=== PATIENT | female | born 1950 | race Caucasian/White ===

== ENCOUNTER 2018-05-19 07:51 | Inpatient (IN) | payer BC ==
[2018-04-28 08:58] LABS: ABSOLUTE BASOPHILS 0.1 thou/uL (0.0-0.2); ABSOLUTE EOSINOPHILS 0.2 thou/uL (0.0-0.7); ABSOLUTE LYMPHOCYTES 1.5 thou/uL (0.8-5.3); ABSOLUTE MONOCYTES 0.3 thou/uL (0.0-1.2); ABSOLUTE NEUTROPHILS 3.2 thou/uL (1.6-8.1); BASOPHILS 2.2 %; EOSINOPHILS 4.1 %; HEMOGLOBIN 14.8 gm/dL (12.0-15.0); LYMPHOCYTES 28.1 %; MCH 30.5 pg (26.0-34.0); MCHC 33.6 g/dL (28.0-37.0); MCV 90.9 fL (80.0-100.0); MONOCYTES 5.9 %; MPV 7.8 fl. (7.2-11.1); NUCLEATED RBCS 0 /100WBC; PLATELET COUNT* 295 thou/uL (150-400); POLYS 59.7 %; RBC 4.84 mil/uL (4.20-5.00); RDW-CV 13.1 % (10.5-14.5); WBC 5.3 thou/uL (4.0-11.0)
[2018-04-28 09:06] LABS: APTT 27.8 Seconds (25.0-31.3); PROTIME 10.3 Seconds (9.20-11.50)
[2018-04-28 09:15] LABS: ALBUMIN 3.6 g/dL (3.4-5.0); CALCIUM 9.1 mg/dL (8.5-10.1); CREATININE 1.2 mg/dL (0.6-1.3); POTASSIUM 4.1 mmol/L (3.5-5.1); TOTAL BILIRUBIN 0.6 mg/dL (<0.1-1.0)
[2018-04-28 10:01] LABS: ESR (SEDRATE) 2 mm/hr (0-30)
--- NOTE | 2018-04-28 17:31 | EKG ---
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 04/28/18 1731 0908 7 Trevor Multani MD, FACC /EPI
[2018-04-28 21:10] LABS: GLYCOHEMOGLOBIN (HGB A1C) 6.5 % (4.8-5.6)
[~2018-05-19] VITALS: Ht 165.1 cm; Wt 90.7 kg
[~2018-05-19 07:51] MED LIST: ACTOS 30 MG TAB30 MG PO; ALENDRONATE PO; ALEVE220 MG PO; AMBIEN 5 MG TABL5 M1 PO; ARIMIDEX PO; ASPIR-TRIN325 MG PO; ASPIRIN325 PO; CALCIUM 500 +1 EAC5 PO; CEFTIN500 MG PO; COLACE100 MG PO; EFFEXOR XR150 MG PO; EFFEXOR XR75 MG PO; ELEMENTAL CALC600 MG PO; FISH OIL 1,001000 M2 PO; FISH OIL 1,001000 MG PO; FISHOIL PO; GLUCOPHAGE1000 MG PO; HYDROCODON-ACE1 EAC7 PO; HYDROCODONE-AP1 EAC6 PO; LISINOPRIL-HCT1 EAC1 PO; LISINOPRIL10 MG PO; LODINE XL500 MG PO; MULTIVITAMINS PO; OXYCODONE HCL 55 MG PO; PHENERGAN 25 MG25 M1 PO; SEROQUEL XR50 MG PO; SIMVASTATIN20 MG PO; TYLENOL325 MG PO; UNICOMPLEX M TA1 TA1 PO; VICODIN 5-5001 EACH PO; VITAMIN D1000 UNI1 PO; VITAMIN D5000 UNIT PO; XARELTO10 M1 PO; XARELTO10 MG PO; ZOCOR 20 MG TAB20 M1 PO
[2018-05-19 08:02] VITALS: BP 132/71
[2018-05-19 13:05] VITALS: BP 112/50
--- NOTE | 2018-05-19 19:58 | NUR ---
ASSUMED PT CARE AT 1255. ARRIVED ON UNIT BY BED. PT ALERT AND ORIENTED X 4. IVF INFUSING @ 100MLS/HR. MEPILEX DRESSING-C/D/I. PT WAS NOT NAUSEOUS AFTER ARRIVAL TO FLOOR. PT GIVEN OXY IR FOR PAIN CONTROL. TOLERATING CLEAR LIQUID DIET. SCDS IN PLACE. ICE PACK IN USE TO RIGHT HIP. IGNACIO HOSE ON. HEMOVAC DRAIN IN PLACE. PT UP TO BEDSIDE COMMODE TO VOID IN AFTERNOON. HOURLY ROUNDS MAINTAINED. CALL LIGHT WITHIN REACH.
[2018-05-19 20:00] VITALS: BP 104/62
[2018-05-20] VITALS (8 sets, daily range): BP systolic 89–123; BP diastolic 35–77
[2018-05-20 03:55] LABS: HEMATOCRIT 32.3 % (37.0-47.0)
--- NOTE | 2018-05-20 06:25 | NUR ---
Oriented x 4 but drowsy. Rt hip mepilex dressing is dry and intact. She has been up x 1 this shift to the bedside commode with walker and gaitbelt, she is 50% weight bearing on that rt lower extremity. Vitals are stable. She's been on 2L n/c and wearing capno monitor and it hasn't alarmed much unless she wasn't deep breathing. She had pain meds x 1 at bedtime. She has slept well.
--- NOTE | 2018-05-20 07:54 | NUR ---
Order recieved to discontinue right hip hemovac drain. It was removed without difficulty. Gauze and tegaderm dressing placed.
[2018-05-20] MEDS ORDERED: PERCOCET PO (08:04)
[2018-05-20] MEDS ORDERED: CYCLOBENZAPRINE10 MG PO (08:04)
[2018-05-20] MEDS ORDERED: ELIQUIS5 MG PO (08:04)
[2018-05-20] MEDS ORDERED: OXYCODONE HCL 55 MG PO (08:07)
--- NOTE | 2018-05-20 13:21 | OP ---
[address] [address] OPERATIVE REPORT Name: MARQUISE ROLLINS Room: [address] IN .R#: [id number] Admission: 05/19/18 Attend Phys: Brendan Broussard Discharge: Date of : 46 Report #: [id number] THIS REPORT FOR: //name// CC: Sam Esteban DICTATED BY: Glenn Boo DO DATE OF SERVICE: 05/19/2018 POSTOPERATIVE DIAGNOSIS: Right hip degenerative joint disease. PROCEDURE: Right total hip arthroplasty. ORTHOPEDIC IMPLANTS: Include MicroPort size 4 standard femoral stem, MicroPort 34 mm acetabular liner, MicroPort 36 mm high wall polyethylene liner, MicroPort 36 mm x +3.5 offset head ceramic. SURGEON: Bari Mcbride DO ASSISTANTS: Glenn Boo DO and Papito Wyman DO. ESTIMATED BLOOD LOSS: 300 mL. PREOPERATIVE ANTIBIOTICS: 2 grams Ancef. DRAINS: One medium Hemovac. SPECIMENS: None. CONDITION OF THE PATIENT: Stable to PACU. INDICATIONS FOR PROCEDURE: This 68-year-old female has been dealing with right hip pain. She has known degenerative joint disease, has been treated for bilateral knee DJD and now seeking treatment for hip DJD. DESCRIPTION OF PROCEDURE: Once written and verbal consent was obtained, the patient was taken from the preoperative holding area to the operating suite, given the benefit of general anesthesia and placement in the lateral decubitus position on a lateral pegboard. All bony surfaces were well padded. The right lower extremity was prepared for surgery, was sterilely prepped and draped in library information technician manner. Timeout was performed to verify the correct operative site, location and procedure. A standard curvilinear incision was made on the anterior surface of the greater trochanter. Sharp dissection down to the IT band and through the IT band, Charnley retractor was placed [place] [address] OPERATIVE REPORT Name: MARQUISE ROLLINS Room: [address] IN [facility].#: [id number] Admission: 05/19/18 Attend Phys: Brendan Broussard Discharge: Date of : 46 Report #: [id number] medius was visualized and electrocautery was used to peel off the greater trochanter. The capsule was identified, was incised in a H capsulotomy. The hip was dislocated. A femoral neck cut was performed. Attention taken to the acetabulum. The soft tissue components were removed from labrum and hypertrophic synovial tissue. Next, sequential reaming up to size 34 mm was performed. There was bleeding bone on 100% of the acetabular surface. A 54 mm 3-hole shell was impacted into place. Two screws were placed within the cup. Next, a 36 mm high wall liner was placed, impacted into place. Next, attention taken to the femur. Box osteotome was used. A centralizer and lateralizer was utilized, sequentially broached up to a size 4. Intraoperative radiographs were obtained and the size 4 stem was selected with the +3.5 for good stability. Final implant of a size 4 standard with 3.5 mm neck was utilized. Final ceramic head was impacted into place. There was good stability of the hip joint. The capsule was closed with #1 Vicryl. The gluteus medius and gluteus jean claude were closed with a #5 TiCron through the greater trochanter for bony fixation. Next, the IT band was closed with #1 Vicryl. Soft tissue was closed with 0 Vicryl, 2-0 Vicryl and a running 3 Stratafix. Skin glue, surgical dressing and a medium Hemovac drain was placed. The patient was awakened, placed on a bed with an abduction pillow in place. PQRS: The patient will receive two doses of prophylactic antibiotics postoperatively as well as Eliquis DVT prophylaxis for 14 days and aspirin 325 b.i.d. for 4 weeks thereafter. <ELECTRONICALLY SIGNED> By: Beny Glasgow DO 05/20/18 1321 1026 [id number] Mcbride DO /amena
--- NOTE | 2018-05-20 16:00 | NUR ---
PT.IN BED. NOT FEELING WELL, BP LOW. SHE SAID SHE LIVES WITH HER ,WHO CAN HELP HER AT HOME IF NEEDED. DAUGHTER WILL BE STAYING WITH THEM ALSO FOR A FEW DAYS. SHE HAS A FRONT WHEEL WALKER IN ROOM WITH HER THAT IS HERS FROM HOME. SHE IS NORMALLY INDEPENDENT AT HOME. IF HOME HEALTH ORDERED AT DISCHARGE WOULD LIKE [facility]: [phone].
--- NOTE | 2018-05-20 16:18 | NUR ---
WAS ASKED TO CALL IN SCRIPT FOR ELIQUIS TO [facility]. CALLED IN AND COPAY IS $20. UPDATED KIERRA/CRISTOBAL
--- NOTE | 2018-05-20 16:34 | NUR ---
ALERT AND ORIENTED X4. UP WITH ASSIST X1-2 WITH WALKER AND GAIT BELT. PAIN BEING MANAGED WITH PO PAIN MEDICATION. NAUSEA BEING MANAGED WITH IV NAUSEA MEDICATION. TOLERATING DIET. ATTENDED PHYSICAL AND OCCUPATIONAL THERAPY THIS SHIFT. PATIENTS BLOOD PRESSURE IS LOW THIS AFTERNOON, PHYSICIAN NOTIFIED ORDERS RECIEVED. CALL LIGHT IS WITHIN REACH. HOURLY ROUNDS HAVE BEEN MAINTAINED THROUGHOUT SHIFT. CALL LIGHT IS WITHIN REACH. NURSING WILL CONTINUE TO MONITOR.
[2018-05-20 16:49] LABS: HEMATOCRIT 30.6 % (37.0-47.0); HEMOGLOBIN 10.4 gm/dL (12.0-15.0)
[2018-05-21 03:06] LABS: HEMATOCRIT 28.3 % (37.0-47.0); HEMOGLOBIN 9.8 gm/dL (12.0-15.0)
[2018-05-21 04:35] VITALS: BP 92/45
--- NOTE | 2018-05-21 07:04 | NUR ---
PATIENT HAS SLEPT WELL THROUGHOUT THE NIGHT. PAIN WELL CONTROLLED. VSS ON 2L 02 VIA NASAL CANNULA. ALTHOUGH BP SLIGHTLY LOW. DRESSING TO RIGHT HIP IS C/D/I AND ABDUCTOR WEDGE IN PLACE AND HIP PRECAUTIONS IN PLACE. PATIENT INSTRUCTED TO USE CALL LIGHT WHEN NEEDING ASSISTANCE AND HOURLY ROUNDS MADE. WILL CONTINUE WITH PLAN OF CARE AND NURSING TO MONITOR.
[2018-05-21 08:15] VITALS: BP 78/46
[2018-05-21 09:23] LABS: CALCIUM 8.6 mg/dL (8.5-10.1); CREATININE 1.3 mg/dL (0.6-1.3); POTASSIUM 4.7 mmol/L (3.5-5.1)
--- NOTE | 2018-05-21 13:24 | NUR ---
ALERT AND ORIENTED X4. UP WITH MAX ASSIST X1-2 WITH WALKER AND GAIT BELT. IV IS PATENT AND INFUSING. PAIN BEING MANAGED WITH PO PAIN MEDICATION AND MUSCLE RELAXER. DENIES NAUESA. TOLERATING DIET. BLOOD PRESSURE HAS BEEN LOW THIS AM. PHYSICIAN IS AWARE. ATTENDED PHYSICAL THERAPY THIS AM. IGNACIO HOSE IN PLACE BILATERALLY. DRESSING TO RIGHT HIP C/D/I. HOURLY ROUNDS HAVE BEEN MAINTAINED THROUGHOUT SHIFT. REPORT HAS BEEN GIVEN TO ABELARDO ON 3W, PATIENT TRANSFERRING TO 309.
--- NOTE | 2018-05-21 13:50 | NUR ---
TRANSFER NOTE - REC REPORT FROM FELIZ MCCORMICK. NO QUESTIONS. PT ARRIVED TO [facility] AT THIS TIME. PT ORIENTED TO CALL LIGHT SYSTEM. AGREE WITH PREVIOUS RN CHARTING. WILL CONTINUE TO MONITOR.
[2018-05-21 14:00] VITALS: BP 94/60
[2018-05-21 16:09] VITALS: BP 110/68
--- NOTE | 2018-05-21 17:35 | NUR ---
SHIFT NOTE - PT WORKED WITH PT THIS SHIFT. PT ABLE TO COMPLY WITH WEIGHT BEARING RESTRICTIONS. FAMILY PRESENT AT BEDSIDE FOR MOST OF SHIFT. WILL CONTINUE TO MONITOR.
[2018-05-21 19:57] VITALS: BP 117/57
[2018-05-21 23:58] VITALS: BP 104/56
[2018-05-22 04:24] VITALS: BP 90/53
--- NOTE | 2018-05-22 04:41 | NUR ---
PATIENT HAS REMAINED ALERT AND ORIENTED X 4 THROUGHOUT THE SHIFT AND RESTING QUIETLY ON HOURLY ROUNDS. HIP PRECAUTIONS MAINTAINED. IVF'S PER ORDERS. BP 90-117/53-57. O2 APPLIED AT MIDNIGHT FOR SLEEPING DESAT. O2 ON AT 4L/MIN CURRENTLY WITH SPOT O2 SAT 96%. MEDICATED FOR PAIN AND SPASMS X 1 TO GOOD EFFECT. DRESSING RIGHT HIP CLEAN AND DRY. CONTINUE TO MONITOR.
[2018-05-22 07:58] VITALS: BP 90/54
[2018-05-22 09:24] LABS: HCO3 25.7 mmol/L (22.0-26.0); PCO2 41.1 mmHg (35.0-45.0); PO2 85.9 mmHg (75.0-100.0); pH 7.414 (7.340-7.450)
[2018-05-22 09:55] LABS: ABSOLUTE EOSINOPHILS 0.2 thou/uL (0.0-0.7); ABSOLUTE LYMPHOCYTES 1.1 thou/uL (0.8-5.3); ABSOLUTE MONOCYTES 0.6 thou/uL (0.0-1.2); ABSOLUTE NEUTROPHILS 5.9 thou/uL (1.6-8.1); BASOPHILS 0.6 %; EOSINOPHILS 2.2 %; HEMATOCRIT 26.6 % (37.0-47.0); HEMOGLOBIN 9.1 gm/dL (12.0-15.0); LYMPHOCYTES 14.5 %; MCHC 34.1 g/dL (28.0-37.0); MONOCYTES 7.4 %; MPV 8.1 fl. (7.2-11.1); NUCLEATED RBCS 0 /100WBC; PLATELET COUNT* 225 thou/uL (150-400); POLYS 75.3 %; RBC 2.92 mil/uL (4.20-5.00); RDW-CV 12.8 % (10.5-14.5); WBC 7.9 thou/uL (4.0-11.0)
[2018-05-22 10:01] LABS: CALCIUM 8.4 mg/dL (8.5-10.1); CREATININE 1.2 mg/dL (0.6-1.3); POTASSIUM 3.8 mmol/L (3.5-5.1); TOTAL BILIRUBIN 0.5 mg/dL (<0.1-1.0); TOTAL PROTEIN 5.3 g/dL (6.4-8.2)
--- NOTE | 2018-05-22 16:57 | NUR ---
SHIFT NOTE - PT CONT TO BE ON O2 THIS SHIFT. PT OFF UNIT THIS AFTERNOON FOR CTA OF CHEST. PT DENIES ANY SOA. WILL CONTINUE TO MONITOR.
[2018-05-22 17:03] VITALS: BP 129/62
[2018-05-22 20:30] VITALS: BP 131/71
[2018-05-23 04:00] VITALS: BP 118/65
--- NOTE | 2018-05-23 04:49 | NUR ---
PT A&Ox4. VITALS STABLE. BP 131/71, P 97, TEMP 99.6, RESP 14, OX 98% ON 2L. IV IN LEFT FA PATENT, INFUSING. UP WITH MIN ASSIST TO CAMMODE. DENIES PAIN. BILATERAL TEDS IN PLACE. DRESSING CLEAN, DRY AND INTACT. FALL PRECAUTIONS IN PLACE. CALL LIGHT WITHIN REACH. HOURLY ROUNDING COMPLETE. WILL CONTINUE TO MONITOR.
[2018-05-23 04:52] LABS: ABSOLUTE EOSINOPHILS 0.2 thou/uL (0.0-0.7); ABSOLUTE LYMPHOCYTES 1.3 thou/uL (0.8-5.3); ABSOLUTE MONOCYTES 0.7 thou/uL (0.0-1.2); BASOPHILS 0.6 %; EOSINOPHILS 2.2 %; HEMATOCRIT 25.9 % (37.0-47.0); HEMOGLOBIN 8.8 gm/dL (12.0-15.0); LYMPHOCYTES 18.1 %; MCHC 34.1 g/dL (28.0-37.0); MCV 91.1 fL (80.0-100.0); MONOCYTES 9.5 %; MPV 8.3 fl. (7.2-11.1); NUCLEATED RBCS 0 /100WBC; PLATELET COUNT* 225 thou/uL (150-400); POLYS 69.6 %; RBC 2.85 mil/uL (4.20-5.00); RDW-CV 12.8 % (10.5-14.5); WBC 7.2 thou/uL (4.0-11.0)
[2018-05-23 05:28] LABS: CALCIUM 8.2 mg/dL (8.5-10.1); CREATININE 0.9 mg/dL (0.6-1.3); POTASSIUM 3.8 mmol/L (3.5-5.1)
[2018-05-23 07:45] VITALS: BP 116/57
[2018-05-23] MEDS ORDERED: ELIQUIS2.5 MG PO (10:40)
[2018-05-23] MEDS ORDERED: PERCOCET PO (10:42)
[2018-05-23] MEDS ORDERED: FLEXERIL PO (10:43)
[2018-05-23 11:36] VITALS: BP 89/35
[2018-05-23 12:55] VITALS: BP 89/35
[2018-05-23 13:11] VITALS: BP 89/35
[2018-05-23] MEDS ORDERED: ASPIRIN325 PO (13:13)
--- NOTE | 2018-05-23 13:30 | NUR ---
PT.TO DISCHARGE TODAY. SHE CONTINUES TO WANT TO USE [facility] FOR HOME HEALTH P.T./O.T. CONTACTED [facility] [phone] AND FAXED FACE SHEET/H&P/OP REPORT/ORDERS FROM [facility] TO [phone]. THEY WILL CALL HER TO SET UP APPT. JUSTIN WAS CALLED IN LAST WEDNESDAY AND PT.INFORMED OF COPAY.
--- NOTE | 2018-05-23 13:50 | NUR ---
Nutrition: Pt assessed for nsg risk 2 points. Admitted with OA of hip. Wt: 200#. Tolerating regular diet. H/o MDD, DM. No nausea. alb 2, prealb 10.8, BG 166. Likely discharging today. Low risk.
--- NOTE | 2018-05-23 14:47 | NUR ---
ASSESSMENT COMPLETE. PT ALERT AND ORIENTED X4. DENIES PAIN. DRESSING TO RIGHT HIP C/D/I. PT SHOWERED THIS AM WITH PHYSICAL THERAPY. PT CURRENTLY 50% WEIGHT BEARING. PT USES WALKER. PT DENIES N/V. VITALS STABLE. PT O2 92% ON ROOM AIR. PT ENCOURAGED TO USE IS 10 TIMER PER HOUR.PT DC'D HOME WITH [facility]. CASE MANAGEMENT SET UP. PT GIVEN SCRIPTS AND VERBALIZES UNDERSTANDING OF DISCHARGE INSTRUCTIONS. IV DC'D WITHOUT ANY DIFFICULTIES. PT HAD IGNACIO HOSE ON BILAT. PT TAKEN TO PERSONAL VEHICLE VIA WHEELCHAIR. SEE ASSESSMENT AND VITALS FOR OTHER DETAILS.
[2018-05-23 14:52] VITALS: BP 89/35
== END 2018-05-23 13:50 | disposition home health service (06) | DRG 470 ==
LOC: M.SUR 07:51 → M.PRE 09:12 → M.ORTHSURG 12:05 → M.TBA 12:05 → M.ORTHSURG 12:50 → EDSTATUS 15:09 → M.SUR 15:16 → M.3W 05-21 13:51
PROVIDERS: Internal Medicine; Orthopaedic Surgery; ADMIT Internal Medicine
PROC: 0SR904Z Replacement of Right Hip Joint with Ceramic on Polyethylene Synthetic Substitute, Open Approach (ICD-10-PCS; principal; 2018-05-19)
DX: M16.11 Unilateral primary osteoarthritis, right hip (principal); D62 Acute posthemorrhagic anemia; J98.11 Atelectasis; F32.9 Major depressive disorder, single episode, unspecified; E11.9 Type 2 diabetes mellitus without complications; I10 Essential (primary) hypertension; F41.1 Generalized anxiety disorder; I95.9 Hypotension, unspecified; Z96.653 Presence of artificial knee joint, bilateral; Z90.710 Acquired absence of both cervix and uterus; Z90.49 Acquired absence of other specified parts of digestive tract; Z85.038 Personal history of other malignant neoplasm of large intestine; Z85.3 Personal history of malignant neoplasm of breast; Z87.891 Personal history of nicotine dependence; Z79.2 Long term (current) use of antibiotics; Z79.899 Other long term (current) drug therapy